=== PATIENT | female | born 1955 | race Caucasian/White ===

== ENCOUNTER 2022-05-07 07:39 | Outpatient (CLI) | payer MEDICARE, OTHER, SELFPAY ==
--- NOTE | 2022-05-07 08:15 | CRLHL7_ITS ---
For Patients: As a result of the Century Cures Act, medical imaging exams and procedure reports are released immediately into your electronic medical record. You may view this report before your referring provider. If you have questions, please contact your health care provider. ULTRASOUND-GUIDED BREAST BIOPSY AND POST-BIOPSY DIGITAL MAMMOGRAM FOR BIOPSY MARKER PLACEMENT CLINICAL HISTORY: Indeterminate nodule RIGHT breast. COMPARISON STUDIES: 05/03/2022. TECHNIQUE: Real-time ultrasound with image documentation was used for targeting the breast lesion. Core biopsy specimens were obtained using an automated gun with a 18-gauge biopsy needle. Post-biopsy CC and ML digital mammograms were obtained to document position of the biopsy marker. CONSENT and TIME OUT: The procedure, risks, and alternatives were explained to the patient and a consent was signed. [place] Protocol was followed including pre-procedure verification that relevant information/documentation was available, reviewed and properly matched to the patient; consent accurate and complete; and equipment and supplies available. Time Out was conducted just prior to starting procedure to verify the four required elements: patient identity, correct side/site marked (if applicable), procedure, relevant images/results properly labeled and displayed (if applicable). PROCEDURE: The patient was positioned supine on the ultrasound table. The breast was prepped with ChloraPrep. 8 cc 1 percent lidocaine used for local anesthesia. Core samples were obtained. A sterile metal biopsy clip was placed percutaneously to julien the lesion position within the breast. The specimens were placed in 10% formalin and sent to the pathology department. Pressure was held on the biopsy site until all bleeding subsided. The skin incision was closed with Steri-Strips. An ice pack was positioned over the biopsy site. Post-biopsy instructions were reviewed with the patient, and a written copy was given to her. LATERALITY: RIGHT breast. LESION: Hypoechoic solid nodule measuring 7 x 6 x 7 millimeters at 6 o`clock 2 cm from the nipple. SUSPICION FOR MALIGNANCY: Medium. NUMBER OF SAMPLES: 5. BIOPSY CLIP SHAPE: Coil. PROXIMITY OF CLIP TO TARGET: Within the lesion. IMPRESSION: Ultrasound-guided breast biopsy. When the pathology report is available, an addendum to this report will be made. 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 Findings are concordant regarding the fibroadenoma. However, because of the presence of ALH, recommend surgical consultation for consideration of possible excision as indicated. Dictated by Ty Woo MD @ May 07 2022 9:07AM Signed by:?Ty Woo MD @05/07/2022 11:10:19 AM (Electronically Signed)
--- NOTE | 2022-05-07 08:45 | CRLHL7_ITS ---
For Patients: As a result of the Century Cures Act, medical imaging exams and procedure reports are released immediately into your electronic medical record. You may view this report before your referring provider. If you have questions, please contact your health care provider. PLEASE SEE ULTRASOUND-GUIDED RIGHT BREAST BIOPSY PERFORMED SAME DAY CRL:[email or web address] tolentino/Dictated by: Ty Woo MD @ 05/07/2022 9:07:00 AM (Electronically Signed)
== END 2022-05-07 07:40 | disposition home or self-care (01) ==
LOC: US 07:46
PROVIDERS: PCP Physician Assistant Medical; Visit Provider Physician Assistant Medical
DX: N63.10 Unspecified lump in the right breast, unspecified quadrant (principal); R92.8 Other abnormal and inconclusive findings on diagnostic imaging of breast
CPT/HCPCS: 19083; 77065; A4648; A4649

== ENCOUNTER 2022-06-14 12:48 | Outpatient (CLI) | payer MEDICARE, OTHER, SELFPAY ==
--- NOTE | 2022-06-14 13:00 | CRLHL7_ITS ---
For Patients: As a result of the Century Cures Act, medical imaging exams and procedure reports are released immediately into your electronic medical record. You may view this report before your referring provider. If you have questions, please contact your health care provider. BILATERAL BREAST MRI WITHOUT AND WITH GADOLINIUM, 06/14/2022 CLINICAL HISTORY: Personal history of atypical ductal hyperplasia diagnosed 05/07/2022. INDICATION FOR BREAST MRI: Screening breast MRI in this high-risk woman. COMPARISON STUDIES: 04/23/2022, CONTRAST: 20 mL Dotarem TECHNIQUE: The patient was positioned prone using a breast coil. Multiple imaging sequences were obtained using 1-1.5 mm thick slices with no gap. The image sequences include T2-weighted STIR in the axial plane, T1-weighted nonfat-saturated gradient echo in the axial plane, pre- and post-contrast T1-weighted FLASH 3D with fat suppression in the axial plane, and T1-weighted FLASH high-resolution 3D with fat suppression in the sagittal plane. Image post-processing was performed on a [employer] workstation. Complex 3D rendering including maximum intensity projections (MIPS) and volumetric renderings were obtained to optimize visualization of the extent of pathology and relationship to the nipple, skin, and chest wall. This aids in determining feasibility of breast conservation surgery. Subtraction, multiplanar reconstruction, mean curve determination, and angiogenesis mapping were also performed. The study was technically adequate. FINDINGS: Breast Density: Heterogeneous fibroglandular tissue. Breast Background Enhancement: Mild. RIGHT Breast: Signal void from the marker clip is seen at the biopsy site in the RIGHT breast 6 o???clock position 2 cm from the nipple. There is biopsy site change. No suspicious enhancement above background. No other findings. LEFT Breast: Within the LEFT breast 12 o???clock position 5 cm from the nipple, there is an oval solid T2 bright enhancing mass 1 cm in size. This is indeterminate. The remainder of the LEFT breast is negative. Lymph Nodes: No enlarged lymph nodes. IMPRESSIONS AND RECOMMENDATIONS: At the site of the diagnosis of ADH there are no suspicious findings. The marker clip is identified. Biopsy site change. There is an indeterminate mass within the LEFT upper breast 5 cm from the nipple 12 o???clock position. Recommend ultrasound with possible ultrasound-guided biopsy. No enlarged lymph nodes. BI-RADS: BI-RADS Category 4: Suspicious Eden Avendano M.D. Body/Breast Radiologist [email or web address] GAYLE/nas Transcribed: 1:39 p.m. JR/Dictated by: Eden Avendano MD @ 06/15/2022 1:13:00 PM (Electronically Signed)
== END 2022-06-14 12:49 | disposition home or self-care (01) ==
LOC: MRI 12:48
PROVIDERS: PCP Physician Assistant Medical; Visit Provider Surgery
DX: N60.99 Unspecified benign mammary dysplasia of unspecified breast (principal); N63.20 Unspecified lump in the left breast, unspecified quadrant; Z86.018 Personal history of other benign neoplasm
CPT/HCPCS: 77049; A9575

== ENCOUNTER 2022-06-28 08:36 | Outpatient (CLI) | payer MEDICARE, OTHER, SELFPAY ==
--- NOTE | 2022-06-28 09:15 | CRLHL7_ITS ---
For Patients: As a result of the Century Cures Act, medical imaging exams and procedure reports are released immediately into your electronic medical record. You may view this report before your referring provider. If you have questions, please contact your health care provider. ULTRASOUND-GUIDED LEFT BREAST BIOPSY AND POST-BIOPSY DIGITAL MAMMOGRAM FOR BIOPSY MARKER PLACEMENT CLINICAL HISTORY: Follow-up abnormal MRI finding. COMPARISON STUDIES: Breast MRI 06/14/2022. TECHNIQUE: Real-time ultrasound with image documentation was used for targeting the breast lesion. Core biopsy specimens were obtained using an automated gun with an 18-gauge biopsy needle. Post-biopsy CC and ML digital mammograms were obtained to document position of the biopsy marker. CONSENT and TIME OUT: The procedure, risks, and alternatives were explained to the patient and a consent was signed. [place] Protocol was followed including pre-procedure verification that relevant information/documentation was available, reviewed and properly matched to the patient; consent accurate and complete; and equipment and supplies available. Time Out was conducted just prior to starting procedure to verify the four required elements: patient identity, correct side/site marked (if applicable), procedure, relevant images/results properly labeled and displayed (if applicable). PROCEDURE: The patient was positioned supine on the ultrasound table. The breast was prepped with ChloraPrep. 8 cc of 1% lidocaine used for local anesthesia. Core samples were obtained. A sterile metal biopsy clip was placed percutaneously to julien the lesion position within the breast. The specimens were placed in 10% formalin and sent to the pathology department. Pressure was held on the biopsy site until all bleeding subsided. The skin incision was closed with Steri-Strips. An ice pack was positioned over the biopsy site. Post-biopsy instructions were reviewed with the patient, and a written copy was given to her. LATERALITY: LEFT LESION: Hypoechoic solid nodule measuring 9-10 mm corresponding to the MRI at 12 o`clock, 5 cm from the nipple. SUSPICION FOR MALIGNANCY: Intermediate NUMBER OF SAMPLES: 5 BIOPSY CLIP SHAPE: Oval-shaped PROXIMITY OF CLIP TO TARGET: Within the lesion IMPRESSION: Ultrasound-guided LEFT breast biopsy. When the pathology report is available, an addendum to this report will be made. ACR not applicable. Dictated by Ty Woo MD @ 06/28/2022 10:37:27 AM CRL:[email or web address] RD/Dictated by: Ty Woo MD @ 06/28/2022 10:37:00 AM ----ADDENDUM---- ADDENDUM: IMPRESSION: Pathology consistent with benign breast tissue without evidence of atypia or malignancy. This is concordant. Dictated by: Ty Woo MD @07/01/2022 8:32:56 AM (Electronically Signed)
--- NOTE | 2022-06-28 09:45 | CRLHL7_ITS ---
For Patients: As a result of the Cures Act, medical imaging exams and procedure reports are released immediately into your electronic medical record. You may view this report before your referring provider. If you have questions, please contact your health care provider. SEE LEFT BREAST ULTRASOUND-GUIDED BIOPSY OF SAME DAY. CRL:primo RD/Dictated by: Ty Woo MD @ 06/28/2022 10:37:00 AM (Electronically Signed)
== END 2022-06-28 08:37 | disposition home or self-care (01) ==
PROVIDERS: PCP Physician Assistant Medical; Visit Provider Surgery
DX: N63.20 Unspecified lump in the left breast, unspecified quadrant (principal); R92.8 Other abnormal and inconclusive findings on diagnostic imaging of breast
CPT/HCPCS: 19083; 77065; 88305; A4648; A4649